=== PATIENT | female | born 1950 | race Caucasian/White ===

== ENCOUNTER → 2019-04-26 | Outpatient (CLI) | payer MEDICARE ==
[~2019-04-26] MED LIST: ASPI-630 PO; BUPR300T4 PO; CALC-31 PO; CARV6.2511 PO; CYAN-25 PO; CYCL10TA2 PO; DIAZ5TAB4 PO; DICL50TA4 PO; ESTR1TAB13 PO; FISH1CAP PO; FLUO20CA8 PO; GABA300C18 PO; HYDR-2769 PO; OXYC1TAB22 PO; POTA20TA82 PO; PRED5TAB19 PO; TRAZ-86 PO; VARE0.5T PO; VITA400C6 PO
[2019-04-26 09:48] LABS: BASO # 0.1 x10^3/uL (0.0-0.2); BASO % 1 % (0-3); EOS # 0.2 x10^3/uL (0.0-0.7); EOS % 2 % (0-3); HEMOGLOBIN 14.3 g/dL (12.0-15.5); LYMPH # 1.9 x10^3/uL (1.0-4.8); LYMPH % 16 % (24-48); MEAN CORPUSCULAR HEMOGLOBIN 32 pg (25-35); MEAN CORPUSCULAR HGB CONC 34 g/dL (31-37); MEAN CORPUSCULAR VOLUME 94 fL (79-100); MONO # 0.8 x10^3/uL (0.0-1.1); MONO % 7 % (0-9); NEUT # 8.7 x10^3/uL (1.8-7.7); NEUT % 75 % (31-73); PLATELET COUNT 315 x10^3/uL (140-400); RED BLOOD COUNT 4.46 x10^6/uL (3.50-5.40); RED CELL DISTRIBUTION WIDTH 13.2 % (11.5-14.5); WHITE BLOOD COUNT 11.6 x10^3/uL (4.0-11.0)
[2019-04-26 09:57] LABS: ALBUMIN 3.6 g/dL (3.4-5.0); CALCIUM 8.9 mg/dL (8.5-10.1); CREATININE 0.8 mg/dL (0.6-1.0); GFR 71.1; POTASSIUM 4.3 mmol/L (3.5-5.1)
[2019-04-26 09:58] LABS: PROTHROMBIN TIME PATIENT 12.4 SEC (11.7-14.0)
[2019-04-26 13:21] LABS: BILIRUBIN,URINE NEGATIVE (NEG); CLARITY,URINE CLEAR; COLOR,URINE YELLOW; NITRITE,URINE NEGATIVE (NEG); PH,URINE 5.5; PROTEIN,URINE NEGATIVE (NEG-TRACE); UROBILINOGEN,URINE 0.2 mg/dL (0.2 mg/dL)
--- NOTE | 2019-04-26 13:25 | EKG ---
[facility] [address] [place] [address] Test Date: 2019-04-26 Test Time: 12:52:55 Pat Name: YONY COLEMAN Department: Room: Gender: F Color Dipper: : 1950 Requested By: NATO PORTER Order Number: [id number] Reading MD: Farzad Becerra Measurements Intervals [place] Rate: 57 P: FL: QRS: 32 QRSD: 84 T: 33 QT: 400 QTc: 392 Interpretive Statements SINUS RHYTHM INCOMPLETE RIGHT BUNDLE BRANCH BLOCK Electronically Signed On 04-28-2019 8:51:58 CDT by Farzad Becerra
[2019-04-26 13:29] LABS: BACTERIA,URINE FEW /HPF (0-FEW); RBC,URINE 0 /HPF (0-2); SQUAMOUS EPITHELIAL CELL,UR MANY /LPF; WBC,URINE RARE /HPF (0-4)
--- NOTE | 2019-04-26 15:34 | RAD ---
EXAM: Chest, 2 views. HISTORY: Hypertension. Preoperative evaluation. COMPARISON: None. FINDINGS: 2 views of the chest are obtained. There is linear opacity within the right midlung, lingula and left lung base likely due to atelectasis or scarring. There is no consolidation, pleural effusion or pneumothorax. The heart is normal in size. There is lumbar fusion instrumentation. There is degenerative change at the thoracolumbar junction. IMPRESSION: 1. Suspected linear atelectasis or scarring within the right midlung, lingula and left lung base. 2. No acute pulmonary finding. Electronically signed by: Connie Issa MD (04/26/2019 3:31 PM) [place] [id number]
== END | disposition home or self-care (01) ==
LOC: SURGPAT 15:56
PROVIDERS: ATTEND Orthopaedic Surgery Sports Medicine
DX: Z01.818 Encounter for other preprocedural examination (principal); M47.815 Spondylosis without myelopathy or radiculopathy, thoracolumbar region; I45.10 Unspecified right bundle-branch block; I10 Essential (primary) hypertension
CPT/HCPCS: 36415; 71046; 80048; 81001; 82040; 82306; 85025; 85610; 85651; 85730; 87641; 93005

== ENCOUNTER 2019-05-10 07:30 | Inpatient (IN) | payer MEDICARE ==
[~2019-05-10] VITALS: Ht 167.6 cm; Wt 83.9 kg
[2019-06-07] VITALS (8 sets, daily range): BP systolic 106–126; BP diastolic 52–71
[2019-06-07] MEDS ORDERED: MELOXICAM 7.5 MG TABLET PO PRN (06:00)
[2019-06-07] MEDS ORDERED: ACETAMINOPHEN 500 MG TABLET PO PRN (06:00)
[2019-06-07] MEDS ORDERED: GABAPENTIN 300 MG CAPSULE. PO PRN (06:00)
[2019-06-07] MEDS ORDERED: MORPHINE SULFATE 5 MG, KETOROLAC 30MG VIAL 30 MG, ROPIVacaine 0.5% PF 60 ML, EPINEPHrin... INT ART ONE ×5 (06:00)
[2019-06-07] MEDS ORDERED: fentaNYL PF VIAL 100 MCG/2 ML VIAL IV PRN ×2 (07:00→11:45)
[2019-06-07] MEDS ORDERED: ONDANSETRON PF 4 MG/2 ML VIAL. IV PRN (07:00)
[2019-06-07] MEDS ORDERED: PROCHLORPERAZINE 10 MG/2 ML VIAL. IV PRN (07:00)
[2019-06-07] MEDS ORDERED: IV RINGERS,LACTATED 1000ML 1,000 ML IV SCH (07:00)
[2019-06-07] MEDS ORDERED: HYDROmorphone 2 MG/ML VIAL IV PRN (07:00)
[2019-06-07] MEDS ORDERED: NEOSTIGMINE METHYLSULFATE 5 MG/5 ML SYRINGE. ONE (09:13)
[2019-06-07] MEDS ORDERED: fentaNYL PF VIAL 100 MCG/2 ML VIAL ONE ×3 (09:13→12:49)
[2019-06-07] MEDS ORDERED: ROCURONIUM 50 MG/5 ML VIAL. ONE (09:13)
[2019-06-07] MEDS ORDERED: SEVOFLURANE > 120 MINUTES. IH ONE (09:13)
[2019-06-07] MEDS ORDERED: ONDANSETRON PF 4 MG/2 ML VIAL. ONE (09:14)
[2019-06-07] MEDS ORDERED: GLYCOPYRROLATE 1 MG/5 ML VIAL. ONE (09:14)
[2019-06-07] MEDS ORDERED: LIDOCAINE 2% PF 5 ML VIAL. ONE (09:14)
[2019-06-07] MEDS ORDERED: DEXAMETHASONE SOD PHOS 4 MG/ML VIAL ONE (09:14)
[2019-06-07] MEDS ORDERED: MIDAZOLAM HCL/PF 2 MG/2 ML VIAL. ONE (09:14)
[2019-06-07] MEDS ORDERED: PROPOFOL 20 ML IV ONE (09:14)
[2019-06-07] MEDS ORDERED: TRANEXAMIC ACID 1,000 MG in IV NORMAL SALINE 50ML 50 ML INJ ONE ×2 (10:15→11:00)
[2019-06-07] MEDS ORDERED: ePHEDrine PF IN SALINE 50 MG/10 ML SYRINGE. IV ONE (10:18)
[2019-06-07] MEDS ORDERED: diphenhydrAMINE 50 MG/ML VIAL IV PRN (11:45)
[2019-06-07] MEDS ORDERED: 0.9 % SODIUM CHLORIDE 10 ML DISP.SYRIN. IV PRN (11:45)
[2019-06-07] MEDS ORDERED: ZOLPIDEM 5 MG TABLET. PO PRN (11:45)
[2019-06-07] MEDS ORDERED: MORPHINE SULFATE 2 MG/ML VIAL. IV PRN (11:45)
[2019-06-07] MEDS ORDERED: METOCLOPRAMIDE HCL 10 MG/2 ML VIAL. IV PRN (11:45)
[2019-06-07] MEDS ORDERED: oxyCODONE IR 5 MG TABLET PO PRN (11:45)
[2019-06-07] MEDS ORDERED: CALCIUM CARBONATE 500 MG TAB.CHEW PO PRN (11:45)
[2019-06-07] MEDS ORDERED: IV DEXTROSE 5% 250 ML BAG. IV PRN (11:45)
[2019-06-07] MEDS ORDERED: PROCHLORPERAZINE 5 MG TABLET. PO PRN (11:45)
[2019-06-07] MEDS ORDERED: DEXTROSE 50% 25 GM / 50ML DISP.SYRIN. IV PRN (11:45)
[2019-06-07] MEDS: ONDANSETRON ODT 4 MG TAB.RAPDIS. PO SCH ×2 (12:00→17:29)
[2019-06-07] MEDS: ONDANSETRON PF 4 MG/2 ML VIAL. IV SCH ×2 (12:00→17:29)
[2019-06-07] MEDS: fentaNYL PF VIAL 100 MCG/2 ML VIAL IV PRN ×2 (12:04→12:12)
[2019-06-07] MEDS: MORPHINE SULFATE 2 MG/ML VIAL. IV PRN ×2 (12:06→12:31)
--- NOTE | 2019-06-07 12:18 | PDOC4 ---
Operative Note Operative Note Date of procedure: 06/07/2019 Surgeon: Hakan Porter Asst.: Carlos Sierra, advanced practice registered nurse who was necessary to assist with manipulating the leg and holding retractors as well as wound closure for this procedure Preoperative diagnosis: Advanced left hip primary degenerative joint disease Postoperative diagnosis: Same Procedure performed: Left total hip arthroplasty Anesthesia: Gen. Findings: Advanced primary degenerative joint disease of left hip. Blood loss: 200 mL Complications: None Components inserted Wharton and nephew 52 mm R3 shell with a 20� posteriorly directed liner, size 6 standard offset anthology stem with a 36+4 cobalt chrome head Reason for procedure: Patient is a very pleasant individual with severe progressive pain interfering with her activities of daily living and attributable to the above preoperative diagnosis. Clinical and radiographic examination were consistent with the above preoperative diagnosis and after discussion of the risks, benefits, and alternatives, taking into account her failure of conservative therapies, the patient elected to proceed with surgery. Description of procedure: Patient was greeted in the preoperative area by myself for the correct extremity was verified and marked. She was taken back to the operative suite and antibiotics were started as they were brought back. Once in the operative room, patient was transferred gently supine to the operating table and secured to the bed with all pressure points padded. Axillary roll was used. The down leg was padded at the fibular head and heel. Patient was secured the bed with our hip positioning devices. I then appreciated leg lengths in this position. After this, the operative extremity was prepped and draped in our usual sterile fashion including an [place]. We then proceeded to conduct our standard preoperative timeout. I then palpated and marked surface anatomy and chris a line from my standard posterolateral skin incision. Skin was incised with a scalpel and subcutaneous tissue was dissected down the level of fascia with electrocautery. Bleeders were cauterized as they were encountered. Draper elevator was used to sweep aside adherent subcutaneous tissue for later identification and repair of the fascia. Fascia was then incised in line with the skin incision and the gluteus daja was split bluntly in line with its fibers. There was abundant fibrotic tissue present and I excised some of this for exposure. After this, a lap was used to push bursal tissue posteriorly to identify the piriformis and quadratus, these were taken down, the piriformis was tagged for later repair. Our self-retaining retractor was in place. At this point, identified the hip capsule incised in a T-type incision, taking ends for later repair. The hip was dislocated, overall it was quite tight. I then palpated and marked with electrocautery areas at the greater and lesser trochanters and center of the femoral head and I made measurements for length and offset. I then chris a line on the neck about 1 cm proximal lesser trochanter and made my neck cut through this. The bony remnant was delivered from the operative field. We placed her acetabular retractors and inspected the acetabulum. I excised the soft tissues from the floor the acetabulum as well as the labrum. Osteophytes were taken down posteriorly. After this, we began reaming and reamed down until we encountered a punctate bleeding bony bed. The operative field and then thoroughly irrigated out. The cup was then impacted referencing elim ira anatomy and the crossbar attachment. I had identified the transverse acetabular ligament. After this, I palpated for the posterior column and greater sciatic notch and referenced this to place a screw into the posterior column. The operative field was irrigated again and my polyethylene liner was then impacted in position and confirmed that it was fully seated on circumferential visualization. We then removed our acetabular retractors and used our proximal femoral elevator and repositioned the leg. I used the neno cutting osteotome followed by canal finding reamer followed by lateralizing reamer. We then began broaching and broached to the above size and trialed different head and necks, using our measurements as a guide as well. The above sizes gave the best range of motion and stability. After this, the trial components were removed and the canal was thoroughly irrigated. I then impacted my femoral stem into position. We then re-trialed the head sizes and selected the above size. The hip was redislocated and the Chase taper region was washed and dried. The femoral head was then gently impacted in position and the acetabulum was inspected and irrigated to make sure was free of debris. After this, the hip was reduced. Excellent range of motion and stability were achieved. I was happy with the leg lengths. We then closed capsule with simple interrupted #2 Ethibond. Piriformis was reapproximated through drill holes. I then injected my periarticular mixture into the vamsi-incisional soft tissues below. Fascia was closed was running #2 Quill suture. Inverted interrupted 2-0 Vicryl in a multilayered fashion was used for subcutaneous tissue and running 3- 0 Monocryl for skin. Prior to wound closure, all counts correct �2. No complications. At the conclusion, the hip region was cleansed and dried and our incisional wound vacuum was applied. Patient tolerated surgery well. At the conclusion, they were laid supine and transferred gently supine to the hospital bed and taken to PACU in a stable and extubated condition. Postoperative plan is to admit the patient to the joint center for DVT and antibiotic prophylaxis as well as to begin the rehabilitation and receive likely IV pain medicine. HAKAN PORTER II, MD Jun 07, 2019 12:18
[2019-06-07] MEDS: IV NORMAL SALINE 1000ML BAG 1,000 ML IV SCH ×2 (13:00→20:28)
[2019-06-07 13:04] LABS: PROTHROMBIN TIME PATIENT 12.6 SEC (11.7-14.0)
--- NOTE | 2019-06-07 13:23 | RAD ---
Study: PELVIS Indication: Postoperative evaluation. Comparison: 04/24/2018 Findings: Status post total left hip arthroplasty. The hardware is intact. No periprosthetic fracture identified. Redemonstrated total right hip arthroplasty without hardware complication or change in alignment. Expected soft tissue findings about the left hip given proximity to surgery. No unexpected retained radiopaque foreign body. Partially visualized lumbar surgical hardware. Impression: 1. Status post total left hip arthroplasty without immediate postoperative hardware complication. 2. Unchanged configuration of a total hip arthroplasty on the right. Electronically signed by: CHAIM CRABTREE MD (06/07/2019 1:20 PM) [facility] [place]
[2019-06-07] MEDS: CARVEDILOL 6.25 MG TABLET. PO SCH (13:40)
[2019-06-07] MEDS: GABAPENTIN 300 MG CAPSULE. PO SCH (13:41)
[2019-06-07] MEDS: CYANOCOBALAMIN (VITAMIN B-12) 1,000 MCG TABLET. PO SCH (13:41)
[2019-06-07] MEDS: CALCIUM CARB/VIT D3 500/200 TABLET. PO SCH (13:41)
[2019-06-07] MEDS: VARENICLINE 0.5 MG TABLET. PO SCH (13:45)
[2019-06-07] MEDS: buPROPion XL 150 MG TAB.ER.24H. PO SCH (13:45)
--- NOTE | 2019-06-07 13:50 | NUR ---
Patient arrived around 1300 in a bed from PACU. O2 per NC at 2L. Vital signs stable. Patient states she is sad from her passing recently but not crying at this time. IV in left arm infusing properly. Dressing on left hip is dry/intact. Pain rated at 2-3. Will continue to monitor.
[2019-06-07] MEDS ORDERED: FLU VAX QS 2019-20 (36MOS+)/PF 0.5 ML SYRINGE. VAX IM ONE (14:00)
[2019-06-07] MEDS ORDERED: WARFARIN 7.5 MG TABLET. PO ONE (16:00)
[2019-06-07] MEDS: FERROUS SULFATE 325 MG TABLET. PO SCH (16:24)
[2019-06-07] MEDS: FLUoxetine HCL 20 MG CAPSULE PO SCH (20:29)
--- NOTE | 2019-06-07 21:30 | NUR ---
assisted patient to bathroom to void pt stated cant do it assisted back to bed bladder scan patient showing 437 ml pt stated start feeling pressure on the bladder area straight cath patient per protocol using aseptic technique obtained 825 ml rigoberto urine @ 2200
[2019-06-07] MEDS: traZODone 100 MG TABLET. PO PRN (21:41)
[2019-06-07] MEDS: oxyCODONE IR 5 MG TABLET PO PRN (21:42)
[2019-06-08 03:00] VITALS: BP 80/49
[2019-06-08 04:15] VITALS: BP 116/50
[2019-06-08 05:58] LABS: HEMATOCRIT 30.7 % (36.0-47.0); HEMOGLOBIN 10.6 g/dL (12.0-15.5)
[2019-06-08] MEDS ORDERED: MAGNESIUM HYDROXIDE 2,400 MG/30 ML ORAL.SUSP. PO PRN (06:00)
[2019-06-08] MEDS: ONDANSETRON ODT 4 MG TAB.RAPDIS. PO SCH ×2 (06:00)
[2019-06-08] MEDS: ONDANSETRON PF 4 MG/2 ML VIAL. IV SCH ×2 (06:00)
[2019-06-08 06:28] VITALS: BP 109/49
[2019-06-08 06:47] LABS: PROTHROMBIN TIME PATIENT 18.5 SEC (11.7-14.0)
--- NOTE | 2019-06-08 08:00 | NUR ---
assisted to the bathroom; she was able to void 400 cc yellow urine. sitting up for breakfast. she is rating her pain a 2-3. dressing clean dry and intact. she has good sensation motion and pulses bilateral lower extremities. am care completed.
[2019-06-08] MEDS: buPROPion XL 150 MG TAB.ER.24H. PO SCH (08:40)
[2019-06-08] MEDS: FERROUS SULFATE 325 MG TABLET. PO SCH ×2 (08:41→17:22)
[2019-06-08] MEDS: GABAPENTIN 300 MG CAPSULE. PO SCH (08:41)
[2019-06-08] MEDS: MULTIVITAMIN with MINERAL TABLET. PO SCH (08:41)
[2019-06-08] MEDS: VARENICLINE 0.5 MG TABLET. PO SCH (08:41)
[2019-06-08] MEDS: ACETAMINOPHEN 500 MG TABLET PO SCH ×3 (08:41→20:51)
[2019-06-08] MEDS: oxyCODONE IR 5 MG TABLET PO PRN ×4 (08:41→21:38)
[2019-06-08] MEDS: CYANOCOBALAMIN (VITAMIN B-12) 1,000 MCG TABLET. PO SCH (08:41)
[2019-06-08] MEDS: diazePAM 5 MG TABLET PO SCH (08:41)
[2019-06-08] MEDS: SENNOSIDES/DOCUSATE 8.6/50MG TABLET. PO SCH (08:41)
[2019-06-08] MEDS: CALCIUM CARB/VIT D3 500/200 TABLET. PO SCH (08:41)
[2019-06-08] MEDS: CARVEDILOL 6.25 MG TABLET. PO SCH (09:00)
[2019-06-08] MEDS ORDERED: POTASSIUM CHLORIDE 99 MG PO SCH (09:00)
--- NOTE | 2019-06-08 09:02 | PDOC ---
ORTHO PROGRESS NOTES Subjective She did require a straight catheter last night. She feels little irritation when she voids. No abdominal complaints, no chest pain or shortness of breath. She feels like her pain is tolerable. Vitals Vital Signs Date Time Temp Pulse Resp B/P (MAP) Pulse Ox O2 Delivery O2 Flow Rate FiO2 06/08/19 06:28 99.0 76 20 109/49 (69) 92 Nasal Cannula 2.0 99.0 Labs Laboratory Tests Test 06/07/19 09:10 06/08/19 05:30 Prothrombin Time 12.6 SEC (11.7-14.0) 18.5 SEC (11.7-14.0) Prothromb Time International Ratio 1.0 (0.8-1.1) 1.6 (0.8-1.1) Hemoglobin 10.6 g/dL (12.0-15.5) Hematocrit 30.7 % (36.0-47.0) Mean Corpuscular Hemoglobin Concent 35 g/dL (31-37) Laboratory Tests Test 06/07/19 09:10 06/08/19 05:30 Prothrombin Time 12.6 SEC (11.7-14.0) 18.5 SEC (11.7-14.0) Prothromb Time International Ratio 1.0 (0.8-1.1) 1.6 (0.8-1.1) Hemoglobin 10.6 g/dL (12.0-15.5) Hematocrit 30.7 % (36.0-47.0) Mean Corpuscular Hemoglobin Concent 35 g/dL (31-37) Notes She is awake and alert, sitting in a chair. Normal motor and sensation are present in her operative extremity Assessment and Plan We will monitor her urinary symptoms, consider sending a UA should they not improved. She will continue PT and OT. NATO PORTER II, MD Jun 08, 2019 09:02
[2019-06-08] MEDS ORDERED: ONDANSETRON ODT 4 MG TAB.RAPDIS. PO PRN (12:00)
[2019-06-08] MEDS ORDERED: ONDANSETRON PF 4 MG/2 ML VIAL. IV PRN (12:00)
--- NOTE | 2019-06-08 14:06 | NUR ---
Pharmacy Warfarin Dosing Note S:Pharmacy consulted to assist with anticoagulation therapy started 06/07/19 with target INR: 1.6 - 2.5 O:YONY COLEMAN is a 68 year old F with IVANIA LABS: Last INR: 1.6 Last HGB: 10.6 Last HCT: Last PLT: Last dose of 7.5 mg given on 06/07/19 at 1700 Previous Regimen: Vitamin K given: N Drug Interaction Changes: Ongoing Drug Interactions: A:INR of 1.6 is within desired range. Target range for this patient is: 1.6 - 2.5 P: Warfarin dose: 1.5 MG Today at 1600 Bridge Therapy: Next INR due IN AM Pharmacy anticoagulation service will continue to follow. JÚNIOR RUBALCAVA [facility] [place], 06/08/19 [id number]
[2019-06-08 15:28] VITALS: BP 138/53
[2019-06-08] MEDS ORDERED: BISACODYL 10 MG SUPP.RECT. PR PRN (16:00)
[2019-06-08] MEDS ORDERED: WARFARIN 1 MG TABLET. PO ONE (16:00)
[2019-06-08 18:15] VITALS: BP 119/59
[2019-06-08] MEDS: FLUoxetine HCL 20 MG CAPSULE PO SCH (20:51)
[2019-06-08] MEDS: traZODone 100 MG TABLET. PO PRN (22:29)
[2019-06-09] MEDS: ACETAMINOPHEN 500 MG TABLET PO SCH ×4 (03:25→21:22)
[2019-06-09 05:35] VITALS: BP 120/62
[2019-06-09 07:26] LABS: HEMATOCRIT 33.5 % (36.0-47.0); HEMOGLOBIN 11.2 g/dL (12.0-15.5)
[2019-06-09 07:36] LABS: PROTHROMBIN TIME PATIENT 18.8 SEC (11.7-14.0)
--- NOTE | 2019-06-09 07:49 | PDOC ---
ORTHO PROGRESS NOTES Subjective Patient sitting up in chair at bedside with complaint of moderate pain from the knee down. Post-op Day: 2 Procedure L IVANIA Vitals Vital Signs Date Time Temp Pulse Resp B/P (MAP) Pulse Ox O2 Delivery O2 Flow Rate FiO2 06/09/19 05:35 99.0 84 20 120/62 (81) 92 Room Air 99.0 Labs Laboratory Tests Test 06/07/19 09:10 06/08/19 05:30 06/09/19 06:45 Prothrombin Time 12.6 SEC (11.7-14.0) 18.5 SEC (11.7-14.0) Prothromb Time International Ratio 1.0 (0.8-1.1) 1.6 (0.8-1.1) Hemoglobin 10.6 g/dL (12.0-15.5) 11.2 g/dL (12.0-15.5) Hematocrit 30.7 % (36.0-47.0) 33.5 % (36.0-47.0) Mean Corpuscular Hemoglobin Concent 35 g/dL (31-37) 34 g/dL (31-37) Laboratory Tests Test 06/09/19 06:45 Hemoglobin 11.2 g/dL (12.0-15.5) Hematocrit 33.5 % (36.0-47.0) Mean Corpuscular Hemoglobin Concent 34 g/dL (31-37) Notes awake and alert Assessment and Plan POD # 2 S/P L IVANIA motor and sensation intact distally dressing dry and intact calf soft and nontender PT today JESUS ASKEW APRN Jun 09, 2019 07:49
[2019-06-09] MEDS: GABAPENTIN 300 MG CAPSULE. PO SCH (08:18)
[2019-06-09] MEDS: MULTIVITAMIN with MINERAL TABLET. PO SCH (08:18)
[2019-06-09] MEDS: CALCIUM CARB/VIT D3 500/200 TABLET. PO SCH (08:18)
[2019-06-09] MEDS: CYANOCOBALAMIN (VITAMIN B-12) 1,000 MCG TABLET. PO SCH (08:18)
[2019-06-09] MEDS: VARENICLINE 0.5 MG TABLET. PO SCH (08:19)
[2019-06-09] MEDS: diazePAM 5 MG TABLET PO SCH (08:19)
[2019-06-09] MEDS: SENNOSIDES/DOCUSATE 8.6/50MG TABLET. PO SCH (08:19)
[2019-06-09] MEDS: FERROUS SULFATE 325 MG TABLET. PO SCH ×2 (08:19→16:53)
[2019-06-09 08:25] VITALS: BP 90/56
[2019-06-09] MEDS: CARVEDILOL 6.25 MG TABLET. PO SCH (09:00)
--- NOTE | 2019-06-09 11:27 | NUR ---
Pharmacy Warfarin Dosing Note S:Pharmacy consulted to assist with anticoagulation therapy started 06/07/19 with target INR: 1.6 - 2.5 O:YONY COLEMAN is a 68 year old F with IVANIA LABS: Last INR: 1.6 Last HGB: 11.2 Last HCT: 33.5 Last PLT: Last dose of 1.5mg given on 06/08/19 at 1722 Previous Regimen: Vitamin K given: N Drug Interaction Changes: Ongoing Drug Interactions: A:INR of 1.6 is within desired range. Target range for this patient is: 1.6 - 2.5 P: Warfarin dose: 3 mg Today at 1600. Bridge Therapy: None Next INR due tomorrow. Pharmacy anticoagulation service will continue to follow. Mele Arita [facility], 06/09/19 0913
[2019-06-09] MEDS: IV NORMAL SALINE 1000ML BAG 1,000 ML IV SCH (11:34)
[2019-06-09] MEDS: buPROPion XL 150 MG TAB.ER.24H. PO SCH (12:26)
[2019-06-09 12:27] VITALS: BP 93/46
[2019-06-09] MEDS: oxyCODONE IR 5 MG TABLET PO PRN (12:27)
--- NOTE | 2019-06-09 15:07 | PATHOLOGY ---
[facility] Accession Number: [id number] . 01 Material submitted: . hip - LEFT HIP BONE. Modifiers: left . 01 Clinical history: . Osteoarthritis of L hip . 02 Diagnosis: Hip bone, left, removal: - Degenerative osteoarthritis. (SKM/db; 06/09/2019) LBQ 06/09/2019 1309 Local . 02 Electronically signed: . Trip Kline MD, Pathologist NPI- [id number] . 01 Gross description: . Received in formalin labeled "Audra Zarco, left hip bone," is a femoral head with attached femoral neck measuring 5.2 x 5.0 x 5.8 cm in greatest dimensions. The femoral head articular surface is smooth to granular and pale yellow-melton to dark brown in appearance, displaying extensive eburnation/hemorrhagic pitting. Serial sectioning reveals granular, pale yellow-melton to diffusely hemorrhagic cut surfaces. Extensive chalky, pale yellow-melton discoloration is noted underlying the area of eburnation/pitting, and an area of softened, hemorrhagic bone is noted underlying the articular surface near the femoral head/neck junction. Formulation Technician sections of the articular surface and softened, hemorrhagic bone are submitted in cassettes A1 and A2, following decalcification. (DAC; 06/08/2019) XDC/XDC 06/08/2019 0734 Local . 02 Pathologist provided ICD-10: M16.12 . 02 CPT . 171311, [id number] Specimen Comment: A courtesy copy of this report has been sent to Specimen Comment: [phone], . Specimen Comment: Report sent to / DR MILLER Performed at: [address] [place], [place] [id number] [facility] [address], [place], [place] [id number] MD Dalton Goff MD Phone: [phone] Performed at: [address] [id number] MD Jr Evangelista MD Phone: [phone]
[2019-06-09] MEDS ORDERED: WARFARIN 3 MG TABLET. PO ONE (16:00)
[2019-06-09 17:36] VITALS: BP 142/59
--- NOTE | 2019-06-09 19:26 | NUR ---
Audra is tolerating rehab well. she is rating her pain from 2-3. needs reinforcement regarding hip restrictions.
[2019-06-09] MEDS: FLUoxetine HCL 20 MG CAPSULE PO SCH (21:22)
[2019-06-10] MEDS: ACETAMINOPHEN 500 MG TABLET PO SCH ×3 (03:00→14:38)
[2019-06-10 04:42] LABS: HEMATOCRIT 30.4 % (36.0-47.0); HEMOGLOBIN 10.5 g/dL (12.0-15.5)
[2019-06-10 04:53] LABS: PROTHROMBIN TIME PATIENT 18.5 SEC (11.7-14.0)
[2019-06-10] MEDS: oxyCODONE IR 5 MG TABLET PO PRN ×3 (05:17→17:21)
[2019-06-10 05:54] VITALS: BP 120/54
[2019-06-10] MEDS: FERROUS SULFATE 325 MG TABLET. PO SCH ×2 (08:00→17:21)
[2019-06-10 08:18] VITALS: BP 84/48
[2019-06-10] MEDS: buPROPion XL 150 MG TAB.ER.24H. PO SCH (08:20)
[2019-06-10] MEDS: diazePAM 5 MG TABLET PO SCH (08:20)
[2019-06-10] MEDS: GABAPENTIN 300 MG CAPSULE. PO SCH (08:20)
[2019-06-10] MEDS: VARENICLINE 0.5 MG TABLET. PO SCH (08:20)
[2019-06-10] MEDS: CALCIUM CARB/VIT D3 500/200 TABLET. PO SCH (08:20)
[2019-06-10] MEDS: MULTIVITAMIN with MINERAL TABLET. PO SCH (08:20)
[2019-06-10] MEDS: SENNOSIDES/DOCUSATE 8.6/50MG TABLET. PO SCH (08:20)
[2019-06-10] MEDS: CYANOCOBALAMIN (VITAMIN B-12) 1,000 MCG TABLET. PO SCH (08:20)
[2019-06-10] MEDS: CARVEDILOL 6.25 MG TABLET. PO SCH (08:23)
--- NOTE | 2019-06-10 08:54 | PDOC ---
ORTHO PROGRESS NOTES Subjective She feels like she is doing well. She has a sore on her tongue, but it is getting better Vitals Vital Signs Date Time Temp Pulse Resp B/P (MAP) Pulse Ox O2 Delivery O2 Flow Rate FiO2 06/10/19 08:23 78 84/48 06/10/19 05:54 98.3 18 94 Room Air 98.3 Labs Laboratory Tests Test 06/09/19 06:45 06/10/19 04:10 Hemoglobin 11.2 g/dL (12.0-15.5) 10.5 g/dL (12.0-15.5) Hematocrit 33.5 % (36.0-47.0) 30.4 % (36.0-47.0) Mean Corpuscular Hemoglobin Concent 34 g/dL (31-37) 35 g/dL (31-37) Prothrombin Time 18.8 SEC (11.7-14.0) 18.5 SEC (11.7-14.0) Prothromb Time International Ratio 1.6 (0.8-1.1) 1.6 (0.8-1.1) Laboratory Tests Test 06/10/19 04:10 Hemoglobin 10.5 g/dL (12.0-15.5) Hematocrit 30.4 % (36.0-47.0) Mean Corpuscular Hemoglobin Concent 35 g/dL (31-37) Prothrombin Time 18.5 SEC (11.7-14.0) Prothromb Time International Ratio 1.6 (0.8-1.1) Notes She is awake and alert and sitting in a chair. Normal motor and sensation are present in her operative leg. Dressing is intact. Assessment and Plan She'll be transferred to facility. She can weight-bear as tolerated. I'll see her back in 2 weeks. NATO PORTER II, MD Jun 10, 2019 08:54
--- NOTE | 2019-06-10 08:56 | SNU/HH DC ---
DISCHARGE ORDERS DISCHARGE INFORMATION: DISCHARGE DATE: Jun 10, 2019 FINAL DIAGNOSIS Advanced left hip primary degenerative joint disease CONDITION ON DISCHARGE: Stable CODE STATUS: Code Status: Full SHELTER: SNF STAY <30 DAYS: Yes HOSPICE: HOSPICE: No HOSPICE EVAL & TREAT: No LTAC: ADMIT TO LTAC: No POST DISCHARGE ORDERS: ACTIVITY ORDERS: Activity as tolerated WEIGHT BEARING STATUS: As tolerated BATHING ORDERS: Shower-keep dressing dry DIET AFTER DISCHARGE: Regular WOUND/INCISION CARE: Ice to area for comfort, Keep wound/cast CDI, Do not change dressing FOLLOW-UP: PHYSICIAN FOLLOW-UP: Paulino in 2 weeks TREATMENT/EQUIPMENT ORDERS: ADAPTIVE EQUIPMENT NEEDED: Walker Physical Therapy For: Evalulation/Treatment Occupational Therapy For: Evaluation/Treatment DISCHARGE MEDICATIONS: Home Meds Reported Medications Potassium Chloride (POTASSIUM CHLORIDE) 20 Meq Tablet.er, 99 MG PO DAILY for POTASSIUM SUPPLEMENT, TAB.SR 04/26/19 Cyanocobalamin (Vitamin B-12) (VITAMIN B-12) 1,000 Mcg Tablet, 1000 MCG PO DAILY for VITAMIN SUPPLEMENT, TAB 04/26/19 Bupropion Hcl (BUPROPION XL) 300 Mg Tab.er.24h, 300 MG PO DAILY for ANTIDEPRESSANT, TAB.SR 04/26/19 Trazodone Hcl (TRAZODONE HCL) 100 Mg Tablet, 100 MG PO PRN QHS PRN for SEE COMMENTS, TAB 04/26/19 Varenicline Tartrate (CHANTIX) 0.5 Mg Tablet, 0.5 MG PO DIRECTED for SMOKING CESSATION, TAB 0.5 MG PO DAILY X3 DAY, 0.5 MG PO BID X4 DAY, 1 MG PO BID UNTIL END OF TREATMENT 04/26/19 Fluoxetine Hcl (FLUOXETINE HCL) 20 Mg Capsule, 20 MG PO HS, CAP 08/11/14 Gabapentin (GABAPENTIN ) 300 Mg Capsule, 300 MG PO DAILY, CAP 08/11/14 Carvedilol (CARVEDILOL ) 6.25 Mg Tablet, 1 TAB PO DAILY, #180 TAB 3 Refills 08/11/14 Diazepam (DIAZEPAM) 5 Mg Tablet, 5 MG PO DAILY, TAB 08/11/14 Calcium Carbonate/Vitamin D3 (CALCIUM 500 + D TABLET) 1 Each Tablet, 1 EACH PO DAILY for CALCIUM SUPPLEMENT 08/11/14 Discontinued Reported Medications Hydrocodone Bit/Acetaminophen (HYDROCODONE-APAP 10-325 ) 1 Each Tablet, 1 TAB PO PRN Q6HRS PRN for PAIN, TAB 0 Refills 08/11/14 Estradiol/Norethindrone Acet (ACTIVELLA 0.5-0.1 MG TABLET) 1 Each Tablet, 1 TAB PO DAILY, #30 TAB 11 Refills 08/11/14 Aspirin (ASPIRIN) 81 Mg Tab.chew, 81 MG PO DAILY, TAB.CHEW 08/11/14 Fish Oil/Dha/Epa (FISH OIL 1,200 MG FISH OIL) 1 Each Capsule, 1 EACH PO 08/11/14 Vitamin E (Dl,Tocopheryl Acet) (VITAMIN E) 400 Unit Capsule, 200 UNIT PO DAILY for SUPPLEMENT 08/11/14 NATO PORTER II, MD Jun 10, 2019 08:56
--- NOTE | 2019-06-10 08:58 | PDOC3 ---
Discharge Summary Visit Information Date of Admission: Jun 07, 2019 Date of Discharge: Jun 10, 2019 Admitting Diagnosis: advanced primary left hip degenerative joint disease Brief Hospital Course Allergies Allergies Coded Allergies Type Severity Reaction Last Updated Verified No Known Drug Allergies 08/11/14 No Vital Signs Vital Signs Date Time Temp Pulse Resp B/P (MAP) Pulse Ox O2 Delivery O2 Flow Rate FiO2 06/10/19 08:23 78 84/48 06/10/19 05:54 98.3 18 94 Room Air 98.3 Lab Results Laboratory Tests Test 06/09/19 06:45 06/10/19 04:10 Hemoglobin 11.2 g/dL (12.0-15.5) 10.5 g/dL (12.0-15.5) Hematocrit 33.5 % (36.0-47.0) 30.4 % (36.0-47.0) Mean Corpuscular Hemoglobin Concent 34 g/dL (31-37) 35 g/dL (31-37) Prothrombin Time 18.8 SEC (11.7-14.0) 18.5 SEC (11.7-14.0) Prothromb Time International Ratio 1.6 (0.8-1.1) 1.6 (0.8-1.1) Laboratory Tests Test 06/10/19 04:10 Hemoglobin 10.5 g/dL (12.0-15.5) Hematocrit 30.4 % (36.0-47.0) Mean Corpuscular Hemoglobin Concent 35 g/dL (31-37) Prothrombin Time 18.5 SEC (11.7-14.0) Prothromb Time International Ratio 1.6 (0.8-1.1) Brief Hospital Course Ms. Zarco is a 68 old female who presented to my outpatient orthopedic surgery clinic with complaints of severe and progressive pain that failed conservative therapies including injections. We had a discussion of the risks, benefits, alternatives to total hip arthroplasty and she elected to proceed. She tolerated surgery well and recovered well from anesthesia in the PACU. She was then taken to the joint Center for care and observation. She did receive PT, OT, DVT and antibiotic prophylaxis. She recovered well from surgery and remained hemodynamically stable and afebrile throughout the hospitalization. Pain was controlled on oral pain medicine at the time of discharge. Good progress was made with therapy throughout the hospitalization, and activities of daily living were accomplished by the patient. The incision was clean dry and intact and the operative extremity had normal motor and sensation. Discharge Information Condition at Discharge: Stable Follow Up: Weeks Disposition/Orders: D/C to Another Facility Scheduled Bupropion Hcl (Bupropion Xl) 300 Mg Tab.er.24h, 300 MG PO DAILY for ANTIDEPRESSANT, (Reported) Entered as Reported by: ERIC RIVAS on 04/26/191152 Last Taken: Unknown Dose on 06/07/19 050 Last Action: Converted on 1132 by RAHUL PORTER MD Calcium Carbonate/Vitamin D3 (Calcium 500 + D Tablet) 1 Each Tablet, 1 EACH PO DAILY for CALCIUM SUPPLEMENT, (Reported) Entered as Reported by: ALMA ROSA LITTLE on 08/11/14934 Last Action: Converted on 06/07/191132 by RAHUL PORTER MD Carvedilol (Carvedilol ) 6.25 Mg Tablet, 1 TAB PO DAILY, #180 Ref 3 (Reported) Entered as Reported by: ALMA ROSA LITTLE on 08/11/14937 Last Taken: Unknown Dose on 06/07/19 0500 Last Action: Continued on 06/07/191132 by RAHUL PORTER MD Cyanocobalamin (Vitamin B-12) (Vitamin B-12) 1,000 Mcg Tablet, 1,000 MCG PO DAILY for VITAMIN SUPPLEMENT, (Reported) Entered as Reported by: ERIC RIVAS on 04/26/191152 Last Action: Continued on 06/07/191132 by RAHUL PORTER MD Diazepam (Diazepam) 5 Mg Tablet, 5 MG PO DAILY, (Reported) Entered as Reported by: ALMA ROSA LITTLE on 08/11/14 0937 Last Taken: Unknown Dose on 06/07/19 0600 Last Action: Continued on 06/07/191132 by RAHUL PORTER MD Fluoxetine Hcl (Fluoxetine Hcl) 20 Mg Capsule, 20 MG PO HS, (Reported) Entered as Reported by: ALMA ROSA LITTLE on 08/11/1439 Last Action: Continued on 06/07/191132 by RAHUL PORTER MD Gabapentin (Gabapentin ) 300 Mg Capsule, 300 MG PO DAILY, (Reported) Entered as Reported by: ALMA ROSA LITTLE on 11/20/14 0938 Last Action: Continued on 06/07/191132 by RAHUL PORTER MD Potassium Chloride (Potassium Chloride) 20 Meq Tablet.er, 99 MG PO DAILY for POTASSIUM SUPPLEMENT, (Reported) Entered as Reported by: ERIC RIVAS on 04/26/191152 Last Action: Converted on 06/07/191132 by RAHUL PORTER MD Varenicline Tartrate (Chantix) 0.5 Mg Tablet, 0.5 MG PO DIRECTED for SMOKING CESSATION, (Reported) 0.5 MG PO DAILY X3 DAY, 0.5 MG PO BID X4 DAY, 1 MG PO BID UNTIL END OF TREATMENT Entered as Reported by: ERIC RIVAS on 04/26/191152 Last Action: Continued on 06/07/191132 by RAHUL PORTER MD Scheduled PRN Trazodone Hcl (Trazodone Hcl) 100 Mg Tablet, 100 MG PO PRN QHS PRN for SEE COMMENTS, (Reported) Entered as Reported by: ERIC RIVAS on 04/26/191152 Last Action: Edited on 06/07/19 140 by EZRA AUGUST Discontinued Medications Aspirin (Aspirin) 81 Mg Tab.chew, 81 MG PO DAILY, (Reported) Entered as Reported by: ALMA ROSA LITTLE on 08/11/14935 Last Taken: Unknown Dose on 05/31/19 Last Action: HELD on 06/07/191132 by RAHUL PORTER MD Estradiol/Norethindrone Acet (Activella 0.5-0.1 Mg Tablet) 1 Each Tablet, 1 TAB PO DAILY, #30 Ref 11 (Reported) Entered as Reported by: ALMA ROSA LITTLE on 08/11/1437 Last Action: HELD on 06/07/191132 by RAHUL PORTER MD Fish Oil/Dha/Epa (Fish Oil 1,200 Mg Fish Oil) 1 Each Capsule, 1 EACH PO, (Reported) Entered as Reported by: ALMA ROSA LITTLE on 08/11/14935 Last Action: HELD on 06/07/191132 by RAHUL PORTER MD Hydrocodone Bit/Acetaminophen (Hydrocodone-Apap 10-325 ) 1 Each Tablet, 1 TAB PO PRN Q6HRS PRN for PAIN, Ref 0 (Reported) Entered as Reported by: ALMA ROSA LITTLE on 08/11/1443 Last Taken: Unknown Dose on 06/07/19 0600 Last Action: HELD on 06/07/191132 by RAHUL PORTER MD Vitamin E (Dl,Tocopheryl Acet) (Vitamin E) 400 Unit Capsule, 200 UNIT PO DAILY for SUPPLEMENT, (Reported) Entered as Reported by: ALMA ROSA LITTLE on 08/11/14 0935 Last Action: HELD on 06/07/191132 by RAHUL PORTER MD Patient Instructions Patient Instructions She'll be transferred to rehabilitation. She will weight-bear as tolerated. Activity as tolerated. She will work with PT and OT. She should continue Coumadin. Worrisome signs and symptoms that should prompt a phone call to my office were discussed. I'll see her back in 2 weeks. NATO PORTER II, MD Jun 10, 2019 08:58
--- NOTE | 2019-06-10 12:41 | NUR ---
Pharmacy Warfarin Dosing Note S:Pharmacy consulted to assist with anticoagulation therapy started 06/07/19 with target INR: 1.6 - 2.5 O:YONY COLEMAN is a 68 year old F with [facility] LABS: Last INR: 1.6 Last HGB: 11.2 Last HCT: 33.5 Last PLT: Last dose of 3 mg given on 06/09/19 at 1722 Previous Regimen: Vitamin K given: N Drug Interaction Changes: Ongoing Drug Interactions: A:INR of 1.6 is within desired range. Target range for this patient is: 1.6 - 2.5 P: Warfarin dose: 4 mg Today at 1400 Bridge Therapy: None Next INR due ON FRIDAY AT [facility]. Pharmacy anticoagulation service will continue to follow. JÚNIOR RUBALCAVA [facility], 06/10/19 [id number]
[2019-06-10] MEDS ORDERED: WARFARIN 4 MG TABLET. PO ONE (14:00)
[2019-06-10 17:19] VITALS: BP 88/42
--- NOTE | 2019-06-10 18:05 | NUR ---
Discharged to [facility] per [facility]. personal belongings taken with her. See discharge instruction sheet for details
== END 2019-06-10 18:13 | DRG 470 ==
LOC: OPSVCIP 06-07 08:17 → 4 SOUTHEST 06-07 13:00
PROVIDERS: ADMIT Orthopaedic Surgery Sports Medicine; ATTEND Orthopaedic Surgery Sports Medicine
PROC: 0SRB0JZ Replacement of Left Hip Joint with Synthetic Substitute, Open Approach (ICD-10-PCS; principal; 2019-06-07 10:00)
DX: M16.12 Unilateral primary osteoarthritis, left hip (principal); F41.8 Other specified anxiety disorders
CPT/HCPCS: 36415; 72170; 85014; 85018; 85610; 88304; 88311; 99406; A7015; C1713; J0171; J0696; J1100; J1885; J2001; J2250; J2270; J2405; J2704; J2710; J2795; J3010; J3490; J7030; J7120; 97116; 97150; 97530; 97535; G0378

== ENCOUNTER → 2021-10-29 | Outpatient (CLI) | payer MEDICARE ==
[~2021-10-29] MED LIST changes: +ASPI325T11 PO; -BUPR300T4 PO; +BUPR300T92 PO; +CYCL10TA19 PO; -CYCL10TA2 PO; +DICL50TA2 PO; +ESCITALOPRAM OX10 MG PO; +FERR325T72 PO; +FLUO20CA22 PO; -FLUO20CA8 PO; +OMEG1CAP27 PO; +OXYC1TAB15 PO; +POTA20TA4 PO; -POTA20TA82 PO; +TRAZ-123 PO; -TRAZ-86 PO; +VITA-47 PO; +VITA200T6 PO; -VITA400C6 PO
[2021-10-29 08:55] LABS: BASO # 0.1 x10^3/uL (0.0-0.2); BASO % 1 % (0-3); EOS # 0.2 x10^3/uL (0.0-0.7); EOS % 2 % (0-3); HEMATOCRIT 43.8 % (36.0-47.0); HEMOGLOBIN 14.7 g/dL (12.0-15.5); LYMPH # 1.7 x10^3/uL (1.0-4.8); LYMPH % 18 % (24-48); MEAN CORPUSCULAR HEMOGLOBIN 32 pg (25-35); MEAN CORPUSCULAR HGB CONC 34 g/dL (31-37); MEAN CORPUSCULAR VOLUME 94 fL (79-100); MONO # 0.7 x10^3/uL (0.0-1.1); MONO % 7 % (0-9); NEUT # 7.1 x10^3/uL (1.8-7.7); NEUT % 73 % (31-73); PLATELET COUNT 348 x10^3/uL (140-400); RED BLOOD COUNT 4.66 x10^6/uL (3.50-5.40); RED CELL DISTRIBUTION WIDTH 13.3 % (11.5-14.5); WHITE BLOOD COUNT 9.8 x10^3/uL (4.0-11.0)
[2021-10-29 09:05] LABS: PROTHROMBIN TIME PATIENT 12.2 SEC (11.7-14.0)
[2021-10-29 09:13] LABS: ALBUMIN 3.7 g/dL (3.4-5.0); CALCIUM 9.1 mg/dL (8.5-10.1); CREATININE 0.7 mg/dL (0.6-1.0); GFR 82.5; POTASSIUM 3.9 mmol/L (3.5-5.1)
--- NOTE | 2021-10-29 13:01 | RAD ---
EXAM: Chest, 2 views. HISTORY: Hypertension. COMPARISON: 04/26/2019 FINDINGS: 2 views of the chest are obtained. There is no infiltrate, pleural effusion or pneumothorax . There is stable lingular atelectasis or scarring. The heart is normal in size. IMPRESSION: Stable suspected lingular atelectasis or scarring. Electronically signed by: Connie Issa MD (10/29/2021 12:59 PM) [id number]
[2021-10-30 01:12] LABS: HEMOGLOBIN A1C 5.3 % (4.8-5.6)
== END ==
LOC: SURGPAT 12:56
PROVIDERS: ATTEND Orthopaedic Surgery
DX: Z01.818 Encounter for other preprocedural examination (principal); M17.0 Bilateral primary osteoarthritis of knee
CPT/HCPCS: 36415; 71046; 80048; 82040; 82306; 83036; 85025; 85610; 85651; 85730; 87641

== ENCOUNTER 2021-11-19 06:19 | Inpatient (IN) | payer MEDICARE ==
[2021-11-07 17:10] VITALS: BP 186/88
[2021-11-19] VITALS (9 sets, daily range): BP systolic 109–127; BP diastolic 59–71
[~2021-11-19] VITALS: Ht 165.1 cm; Wt 79.5 kg
[~2021-11-19 06:19] MED LIST changes: +ACETAMINOPHEN 500 MG TABLET PO PRN; -ASPI325T11 PO; -FERR325T72 PO; +GABAPENTIN 300 MG CAPSULE. PO PRN; +IV RINGERS,LACTATED 1000ML 1,000 ML IV SCH; +MELOXICAM 7.5 MG TABLET PO PRN; -OXYC1TAB15 PO; +PROCHLORPERAZINE 10 MG/2 ML VIAL. IVP PRN; +TRANEXAMIC ACID 1,000 MG in IV NS 50ML -- 1ST BAG INJ ONE; +fentaNYL PF VIAL 100 MCG/2 ML VIAL IVP PRN
[2021-11-19] MEDS ORDERED: ROCURONIUM 50 MG/5 ML VIAL. ONE (06:58)
[2021-11-19] MEDS ORDERED: fentaNYL PF VIAL 100 MCG/2 ML VIAL ONE ×2 (06:58→09:43)
[2021-11-19] MEDS ORDERED: PROPOFOL 10 MG/ML (20ML) VIAL. IV ONE (06:58)
[2021-11-19] MEDS ORDERED: ONDANSETRON PF 4 MG/2 ML VIAL. ONE (06:58)
[2021-11-19] MEDS ORDERED: DEXAMETHASONE SOD PHOS 4 MG/ML VIAL ONE (06:58)
[2021-11-19] MEDS ORDERED: LIDOCAINE 2% PF 5 ML VIAL. ONE (06:58)
[2021-11-19] MEDS ORDERED: NEOSTIGMINE METHYLSULFATE 5 MG/5 ML SYRINGE. ONE (06:59)
[2021-11-19] MEDS ORDERED: GLYCOPYRROLATE 1 MG/5 ML VIAL. ONE (06:59)
[2021-11-19] MEDS ORDERED: MIDAZOLAM HCL/PF 2 MG/2 ML VIAL. ONE (06:59)
[2021-11-19] MEDS ORDERED: SEVOFLURANE 31 TO 60 MINUTES. IH ONE (07:01)
[2021-11-19] MEDS ORDERED: TRANEXAMIC ACID in NS IVPB 50 ML ONE (07:30)
[2021-11-19] MEDS: TV=62ml MORPHINE 5 MG, KETOROLAC 30 MG, ROPIV, EPI INT ART ONE ×2 (07:40→08:28)
[2021-11-19] MEDS: TRANEXAMIC ACID in NS IVPB 50 ML ONE ×2 (07:40→08:28)
[2021-11-19] MEDS ORDERED: TRANEXAMIC ACID 1,000 MG in IV NS 50ML -- 2ND BAG INJ ONE (08:00)
[2021-11-19] MEDS ORDERED: LABETALOL 20 MG/4 ML DISP.SYRIN. IVP ONE (08:35)
[2021-11-19] MEDS ORDERED: ePHEDrine PF IN SALINE 50 MG/10 ML SYRINGE. IV ONE (09:14)
--- NOTE | 2021-11-19 09:17 | PDOC4 ---
OPERATIVE NOTE Date: Date: Nov 19, 2021 Pre-Op Diagnosis: Severe degenerative joint disease left knee Post-Op Diagnosis: Same Procedure Performed: Left total knee arthroplasty Surgeon: Cathy Anesthesia Type: General Blood Loss: 100 cc Specimans Obtained: Bone left knee Findings: See dictation Complications: None STEVENSON PANTOJA Jr. DO Nov 19, 2021 09:17
[2021-11-19] MEDS ORDERED: ZOLPIDEM 5 MG TABLET. PO PRN (09:30)
[2021-11-19] MEDS ORDERED: METOCLOPRAMIDE HCL 10 MG/2 ML VIAL. IVP PRN (09:30)
[2021-11-19] MEDS ORDERED: diphenhydrAMINE 50 MG/ML VIAL IVP PRN (09:30)
[2021-11-19] MEDS ORDERED: PROCHLORPERAZINE 5 MG TABLET. PO PRN (09:30)
[2021-11-19] MEDS ORDERED: fentaNYL PF VIAL 100 MCG/2 ML VIAL IVP PRN (09:30)
[2021-11-19] MEDS ORDERED: DEXTROSE 50% 25 GM / 50ML DISP.SYRIN. IV PRN (09:30)
[2021-11-19] MEDS ORDERED: IV DEXTROSE 5% 250 ML BAG. IV PRN (09:30)
[2021-11-19] MEDS ORDERED: CALCIUM CARBONATE 500 MG TAB.CHEW PO PRN (09:30)
[2021-11-19] MEDS ORDERED: 0.9 % SODIUM CHLORIDE 10 ML DISP.SYRIN. IV PRN (09:30)
[2021-11-19] MEDS ORDERED: MORPHINE SULFATE 2 MG/ML INJ. IVP PRN (09:30)
[2021-11-19] MEDS: fentaNYL PF VIAL 100 MCG/2 ML VIAL IVP PRN ×2 (09:41→09:54)
--- NOTE | 2021-11-19 09:44 | OP ---
DATE OF SURGERY: 11/19/2021 She is here today for severe degenerative joint disease. PREOPERATIVE DIAGNOSIS: Severe degenerative joint disease, left knee. POSTOPERATIVE DIAGNOSIS: Severe degenerative joint disease, left knee. PROCEDURE: Left total knee arthroplasty. SURGEON: Theodore Morgan Jr, DO. REDUCING SYSTEM OPERATOR: Brady White. ANESTHESIA: General. COMPLICATIONS: None. ESTIMATED BLOOD LOSS: 100 mL. COMPONENTS: Raven left total knee arthroplasty with a size 5 femur, size 4 tibia and a size 32 patella. DESCRIPTION OF PROCEDURE: The patient was taken to the operative suite, given a spinal anesthetic. Right lower extremity was then prepped and draped in a sterile fashion. Incision was made through skin and subcutaneous tissues down to the extensor mechanism. Superficial bleeding was coagulated using a Bovie knife. After that, the medial parapatellar incision was made. Patella was everted. There were severe changes noted in the patellofemoral compartment. Therefore, the size of this patella was measured. This was cut in the appropriate fashion and then a 38 was noted to be the most appropriate size for the patella; therefore, the guide was placed and the drill holes were made through the guide. This was protected as the knee was taken into a flexed position. There were noted to be severe changes to the medial compartment, moderate changes to the lateral compartment. In any manner, the medial and lateral meniscal remnants were removed as well as the ACL, PCL remained intact and the F1 guide was then placed on the femur and drilled. Chondral surface was removed. The appropriate sites and then the F2 guide was placed, held in appropriate position. The drill pins were placed on the distal femur and then they were also on the anterior femur to hold this into position. The distal pins were then removed. The remainder of the guide was noted to be intact and in good position. Following this, the distal cut was made. This was noted to be a good flush cut. This was all removed and the next guide was then placed through using the pin holes distally. This was flushed on the femur with proper rotation and orientation noted. Therefore, this was pinned in appropriate position. The anterior, posterior and one of the chamfer cuts were made as well as the plugs, those were drilled. This guide was then removed and the final guide was placed on the femur. The final chamfer cuts were then made. These were noted to be a good flush cuts. The trial fit perfectly. This was then removed and following this, the external tibial guide was placed on the tibia with medial, lateral and posterior retractors placed. Proximal tibia was then cut to the appropriate position and an extra 2 mm was taken due to the fact this was a minimal resection at this point. The trials were then placed, taken through range of motion. There was excellent tracking of the patellofemoral joint and excellent stability throughout the arc of motion. These trials were then marked on the tibial side. This was held with pins and the drill and the keel were placed at the appropriate depth for rotation. All trial components were then removed. The Werewolf was then used to coagulate posterior capsular structures as well as medial and lateral capsular structures. Cement was mixed on the back table. Cement was then placed on cut surfaces. The tibia was impacted first, followed by the femur and this was held in extension until hardening of cement. Same was done on the patella, which was held with a patellar clamp. Excess cement was removed and then after hardening of cement, excess cement was again removed and then taken through range of motion. There was excellent stability, equal flexion and extension gaps were noted at this point. Then, the trials were removed and the actual polyethylene inserts were placed and held in the tray and noted to be stable. This was taken through range of motion. Tranexamic acid was then placed within the knee itself. While the tourniquet was deflated, no excessive bleeding was noted. Superficial bleeding was coagulated with the Bovie knife as well as with the Werewolf. The medial parapatellar incision was then closed in a running fashion using the Stratafix, then taken through multiple ranges of motion, noted to be stable and secure. This was reinforced with 2 or 3 separate areas of Vicryl and then the superficial tissue and skin was reapproximated. Sterile dressing was applied. The patient was then taken from the operative bed to the postoperative bed, taken to the PACU in stable condition. PURA BUCHANAN: Qing TID: [id number]
[2021-11-19] MEDS: MORPHINE SULFATE 2 MG/ML INJ. IVP PRN ×2 (09:45→09:55)
[2021-11-19] MEDS ORDERED: PROCHLORPERAZINE 10 MG/2 ML VIAL. ONE (09:48)
[2021-11-19] MEDS: MULTIVITAMIN with MINERAL TABLET. PO SCH (10:00)
[2021-11-19] MEDS ORDERED: HYDROmorphone 2 MG/ML INJ. ONE (10:06)
[2021-11-19] MEDS: HYDROmorphone 2 MG/ML INJ. IVP PRN ×2 (10:07→10:22)
--- NOTE | 2021-11-19 10:08 | RAD ---
XR [id number] 1-2 VIEWS History: Postop FINDINGS/ IMPRESSION: Postsurgical changes from left total knee arthroplasty. Well-seated distal femur and proximal tibial components. Postsurgical changes of the patellar articular surface. No fracture or dislocation. Align ment is anatomic. Expected joint fluid, subcutaneous air and edema. Electronically signed by: Rubio Cortez MD (11/19/2021 10:06 AM) [id number]
[2021-11-19] MEDS: IV NORMAL SALINE 1000ML BAG 1,000 ML IV SCH (10:32)
[2021-11-19] MEDS ORDERED: ASPI325T11 PO (11:27)
[2021-11-19] MEDS: ONDANSETRON ODT 4 MG TAB.RAPDIS. PO SCH ×2 (12:00→18:00)
[2021-11-19] MEDS: ONDANSETRON PF 4 MG/2 ML VIAL. IVP SCH ×2 (14:01→17:52)
--- NOTE | 2021-11-19 14:44 | PDOC1 ---
History and Physical Date of Admission Date of Admission DATE: 11/19/21 TIME: 14:44 Identification/Chief Complaint Chief Complaint Left knee pain Source Source: Patient History of Present Illness History of Present Illness Ms Zarco is a 71yo female with PMHx HTN, osteoarthritis, osteoporosis who comes to [facility] on 11/19/21 for elective left total knee arthroplasty after failing conservative treatment outpatient. She still difficulty bearing weight pain is interfering with activities of daily living. Seen postoperatively feeling improved. Some numbness patella side otherwise pain is absent currently no chest pain or shortness of breath. Past Medical History Past Medical History Right sciatica, hypertension. She has osteoporosis and osteoarthritis. Cardiovascular: HTN Past Surgical History Past Surgical History Significant for right total hip arthroplasty, 3 back surgeries, bilateral cataract extraction and also tonsillectomy. Past Surgical History: Cataract Removal, Total hip replacement (Right IVANIA, left IVANIA 06/07/2019), Tonsillectomy Social History Smoke: Quit ALCOHOL: none Drugs: None Current Medications Current Medications Current Medications Fentanyl Citrate (Fentanyl 2ml Vial) 25 mcg PRN Q5MIN PRN IVP MILD PAIN 1-3 Last administered on 11/19/21at 07:07; Start 11/19/21 at 06:00; Stop 11/20/21 at 05:59 Fentanyl Citrate (Fentanyl 2ml Vial) 50 mcg PRN Q5MIN PRN IVP MODERATE PAIN 4-6 Last administered on 11/19/21at 09:54; Start 11/19/21 at 06:00; Stop 11/20/21 at 05:59 Morphine Sulfate (Morphine Sulfate) 1 mg PRN Q10MIN PRN IVP SEVERE PAIN 7-10 Last administered on 11/19/21at 09:55; Start 11/19/21 at 06:00; Stop 11/20/21 at 05:59 Ringer's Solution 1,000 ml @ 30 mls/hr Q24H IV Last administered on 11/19/21at 06:58; Start 11/19/21 at 06:00; Stop 11/19/21 at 17:59 Hydromorphone HCl (Dilaudid) 0.5 mg PRN Q10MIN PRN IVP SEVERE PAIN 7-10, 2nd CHOICE Last administered on 11/19/21at 10:22; Start 11/19/21 at 06:00; Stop 11/20/21 at 05:59 Prochlorperazine Edisylate (Compazine) 5 mg PACU PRN PRN IVP NAUSEA, MRX1 Last administered on 11/19/21at 09:45; Start 11/19/21 at 06:00; Stop 11/20/21 at 05:59 Meloxicam (Mobic) 15 mg 1X PREOP PRN PO PRIOR TO PROCEDURE Last administered on 11/19/21at 06:59; Start 11/19/21 at 06:00; Stop 11/19/21 at 18:00 Gabapentin (Neurontin) 300 mg 1X PREOP PRN PO PRIOR TO PROCEDURE Last administered on 11/19/21at 06:58; Start 11/19/21 at 06:00; Stop 11/19/21 at 18:00 Acetaminophen (Tylenol) 1,000 mg 1X PREOP PRN PO PRIOR TO PROCEDURE Last administered on 11/19/21at 06:59; Start 11/19/21 at 06:00; Stop 11/19/21 at 18:00 Cefazolin Sodium/ Dextrose 50 ml @ 100 mls/hr 1X PREOP PRN IV PRIOR TO PROCEDURE; Start 11/19/21 at 06:00; Stop 11/19/21 at 18:00 Tranexamic Acid 50 ml @ 50 mls/hr 1X PERIOP ONCE INJ ; Start 11/19/21 at 06:00; Stop 11/19/21 at 06:59; Status DC Tranexamic Acid 50 ml @ 50 mls/hr 1X PERIOP ONCE INJ ; Start 11/19/21 at 08:00; Stop 11/19/21 at 08:59; Status DC Morphine Sulfate 5 mg/Ketorolac Tromethamine 30 mg/Ropivacaine 60 ml/Epinephrine HCl 0.5 mg/ Miscellaneous 63 ml @ 63 mls/hr 1X PERIOP ONCE INT ART Last administered on 11/19/21at 08:28; Start 11/19/21 at 06:00; Stop 11/19/21 at 06:59; Status DC Propofol (Diprivan) 200 mg STK-MED ONCE IV ; Start 11/19/21 at 06:58; Stop 11/19/21 at 06:58; Status DC Dexamethasone Sodium Phosphate (Decadron) 4 mg STK-MED ONCE .ROUTE ; Start 11/19/21 at 06:58; Stop 11/19/21 at 06:58; Status DC Lidocaine HCl (Lidocaine Pf 2% Vial) 5 ml STK-MED ONCE .ROUTE ; Start 11/19/21 at 06:58; Stop 11/19/21 at 06:58; Status DC Ondansetron HCl (Zofran) 4 mg STK-MED ONCE .ROUTE ; Start 11/19/21 at 06:58; Stop 11/19/21 at 06:58; Status DC Rocuronium [place] (Zemuron) 50 mg STK-MED ONCE .ROUTE ; Start 11/19/21 at 06:58; Stop 11/19/21 at 06:58; Status DC Fentanyl Citrate (Fentanyl 2ml Vial) 100 mcg STK-MED ONCE .ROUTE ; Start 11/19/21 at 06:58; Stop 11/19/21 at 06:59; Status DC Neostigmine [place] (Neostigmine Methylsulfate) 5 mg STK-MED ONCE .ROUTE ; Start 11/19/21 at 06:59; Stop 11/19/21 at 06:59; Status DC Midazolam HCl (Versed) 2 mg STK-MED ONCE .ROUTE ; Start 11/19/21 at 06:59; Stop 11/19/21 at 06:59; Status DC Glycopyrrolate (Robinul) 1 mg STK-MED ONCE .ROUTE ; Start 11/19/21 at 06:59; Stop 11/19/21 at 06:59; Status DC Sevoflurane (Ultane) 30 ml STK-MED ONCE IH ; Start 11/19/21 at 07:01; Stop 11/19/21 at 07:01; Status DC Tranexamic Acid 50 ml @ As Directed STK-MED ONCE .ROUTE ; Start 11/19/21 at 07:30; Stop 11/19/21 at 07:30; Status DC Tranexamic Acid 50 ml @ As Directed STK-MED ONCE .ROUTE Last administered on 11/19/21at 08:28; Start 11/19/21 at 07:36; Stop 11/19/21 at 07:36; Status DC Labetalol HCl (Normodyne Iv Push) 20 mg STK-MED ONCE IVP ; Start 11/19/21 at 08:35; Stop 11/19/21 at 08:35; Status DC Ephedrine Sulfate (ePHEDrine PF IN SALINE SYRINGE) 50 mg STK-MED ONCE IV ; Start 11/19/21 at 09:14; Stop 11/19/21 at 09:14; Status DC Morphine Sulfate (Morphine Sulfate) 2 mg PRN Q1HR PRN IVP PAIN-SEE COMMENTS; Start 11/19/21 at 09:30 Fentanyl Citrate (Fentanyl 2ml Vial) 25 mcg PRN Q1HR PRN IVP PAIN, 2nd CHOICE; Start 11/19/21 at 09:30 Diphenhydramine HCl (Benadryl) 25 mg PRN Q6HRS PRN IVP ITCHING; Start 11/19/21 at 09:30 Multivitamins (Thera M Plus) 1 tab DAILY PO ; Start 11/19/21 at 10:00 Senna/Docusate Sodium (Senna Plus) 1 tab DAILY PO ; Start 11/19/21 at 10:00 Ferrous Sulfate (Feosol) 325 mg BIDWMEALS PO ; Start 11/19/21 at 17:00 Sodium Chloride 1,000 ml @ 40 mls/hr Q24H IV Last administered on 11/19/21at 10:32; Start 11/19/21 at 09:30 Prochlorperazine Maleate (Compazine) 10 mg PRN Q4HRS PRN PO Nausea/vomiting, 2nd choice; Start 11/19/21 at 09:30 Metoclopramide HCl (Reglan Vial) 10 mg PRN Q4HRS PRN IVP NAUSEA/VOMITING, 3rd CHOICE; Start 11/19/21 at 09:30 Magnesium Hydroxide (Milk Of Magnesia) 2,400 mg 1X PRN PRN PO CONSTIPATION; Start 11/20/21 at 06:00; Stop 11/21/21 at 05:59 Bisacodyl (Dulcolax Supp) 10 mg 1X PRN PRN [place] CONSTIPATION; Start 11/20/21 at 16:00; Stop 11/21/21 at 15:59 Zolpidem Tartrate (Ambien) 5 mg PRN QHS PRN PO INSOMNIA, MAY REPEAT IN 1HR; Start 11/19/21 at 09:30 Calcium Carbonate/ Glycine (Tums) 500 mg PRN QID PRN PO INDIGESTION; Start 11/19/21 at 09:30 Sodium Chloride (Normal Saline Flush) 10 ml QSHIFT PRN IV AFTER MEDS AND BLOOD DRAWS; Start 11/19/21 at 09:30 Acetaminophen (Tylenol) 1,000 mg Q6H PO ; Start 11/20/21 at 09:00 Meloxicam (Mobic) 15 mg DAILY PO ; Start 11/20/21 at 09:00 Gabapentin (Neurontin) 100 mg Q8HRS PO ; Start 11/20/21 at 06:00 Ondansetron HCl (Zofran) 4 mg Q6HRS IVP Last administered on 11/19/21at 14:01; Start 11/19/21 at 12:00; Stop 11/20/21 at 06:01 Ondansetron HCl (Zofran Odt) 4 mg Q6HRS PO ; Start 11/19/21 at 12:00; Stop 11/20/21 at 06:01 Ondansetron HCl (Zofran) 4 mg PRN Q6HRS PRN IVP Nausea/vomiting, 1st choice; Start 11/20/21 at 12:00 Ondansetron HCl (Zofran Odt) 4 mg PRN Q6HRS PRN PO Nausea/vomiting, 1st choice; Start 11/20/21 at 12:00 Oxycodone HCl (Roxicodone) 5 mg PRN Q4HRS PRN PO Pain score 4-6; Start 11/19/21 at 09:30 Dextrose (Dextrose 50%-Water Syringe) 12.5 gm PRN Q15MIN PRN IV SEE COMMENTS; Start 11/19/21 at 09:30 Dextrose (Iv Dextrose 5%) 250 ml PRN Q15MIN PRN IV SEE COMMENTS; Start 11/19/21 at 09:30 Cefazolin Sodium/ Dextrose 50 ml @ 100 mls/hr Q6H IV Last administered on 11/19/21at 13:58; Start 11/19/21 at 14:00; Stop 11/20/21 at 02:29 Aspirin (Klaudia Aspirin) 325 mg DAILYWBKFT PO ; Start 11/20/21 at 08:00 Fentanyl Citrate (Fentanyl 2ml Vial) 100 mcg STK-MED ONCE .ROUTE ; Start 11/19/21 at 09:43; Stop 11/19/21 at 09:43; Status DC Prochlorperazine Edisylate (Compazine) 10 mg STK-MED ONCE .ROUTE ; Start 11/19/21 at 09:48; Stop 11/19/21 at 09:48; Status DC Hydromorphone HCl (Dilaudid) 2 mg STK-MED ONCE .ROUTE ; Start 11/19/21 at 10:06; Stop 11/19/21 at 10:06; Status DC Active Scripts Active Reported Aspirin Ec (Aspirin) 325 Mg Tablet.dr 1 Tab PO BID PRN 30 Days Hydrocodone-Apap 10-325 (Hydrocodone Bit/Acetaminophen) 1 Tab Tablet 1 Tab PO PRN Q6HRS PRN Diclofenac Potassium 50 Mg Tablet 50 Mg PO BID Vitamin E (Vitamin E Mixed) 200 Unit Tablet 200 Unit PO DAILY Fish Oil 1,000 Mg Softgel (Tarzan-3 Fatty Acids/Fish Oil) 1 Each Capsule 1 Each PO DAILY Escitalopram Oxalate 10 Mg Tablet 1 Tab PO DAILY Bupropion Xl (Bupropion Hcl) 300 Mg Tab.er.24h 300 Mg PO DAILY Gabapentin (Gabapentin) 300 Mg Capsule 600 Mg PO BID Carvedilol (Carvedilol) 6.25 Mg Tablet 1 Tab PO DAILY Calcium 500 + D Tablet (Calcium Carbonate/Vitamin D3) 1 Each Tablet 1 Each PO DAILY Allergies Allergies: Coded Allergies: No Known Drug Allergies (Unverified , 08/11/14) ROS General: No: Chills, Night Sweats, Fatigue, Malaise, Appetite, Other PSYCHOLOGICAL ROS: No: Anxiety, Behavioral Disorder, Concentration difficultie, Decreased libido, Depression, Disorientation, Hallucinations, Hostility, Irritablity, Memory difficulties, Mood Swings, Obsessive thoughts, Physical abuse, Sexual abuse, Sleep disturbances, Suicidal ideation, Other Eyes: No Blurry vision, No Decreased vision, No Double vision, No Dry eyes, No Excessive tearing, No Eye Pain, No Itchy Eyes, No Loss of vision, No Photophobia, No Scotomata, No Uses contacts, No Uses glasses, No Other HEENT: No: Heacaches, Visual Changes, Hearing change, Nasal congestion, Nasal discharge, Oral lesions, Sinus pain, Sore Throat, Epistaxis, Sneezing, Snoring, Tinnitus, Vertigo, Vocal changes, Other ALLERGY AND IMMUNOLOGY: No: Hives, Insect Bite Sensitivity, Itchy/Watery Eyes, Nasal Congestion, Post Nasal Drip, Seasonal Allergies, Other Hematological and Lymphatic: No: Bleeding Problems, Blood Clots, Blood Transfusions, Brusing, Night Sweats, Pallor, Swollen Lymph Nodes, Other ENDOCRINE: No: Breast Changes, Galactorrhea, Hair Pattern Changes, Hot Flashes, Malaise/lethargy, Mood Swings, Palpitations, Polydipsia/polyuria, Skin Changes, Temperature Intolerance, Unexpected Weight Changes, Other Breast: No New/Changing Breast Lumps, No Nipple changes, No Nipple discharge, No Other Respiratory: No: Cough, Hemoptysis, Orthopnea, Pleuritic Pain, Shortness of breath, SOB with excertion, Sputum Changes, Stridor, Tachypnea, Wheezing, Other Cardiovascular: No Chest Pain, No Palpitations, No Orthopnea, No Paroxysmal Noc. Dyspnea, No Edema, No Lt Headedness, No Other Gastrointestinal: No Nausea, No Vomiting, No Abdominal Pain, No Diarrhea, No Constipation, No Melena, No Hematochezia, No Other Genitourinary: No Dysuria, No Frequency, No Incontinence, No Hematuria, No Retention, No Discharge, No Urgency, No Pain, No Flank Pain, No Other, No , No , No , No , No , No , No Musculoskeletal: Yes Gait Disturbance, Yes Joint Pain, Yes Joint Stiffness; No Joint Swelling, No Muscle Pain, No Muscular Weakness, No Pain In:, No Swelling In:, No Other Neurological: No Behavorial Changes, No Bowel/Bladder ControlChng, No Confusion, No Dizziness, No Gait Disturbance, No Headaches, No Impaired Coord/balance, No Memory Loss, No Numbness/Tingling, No Seizures, No Speech Problems, No Tremors, No Visual Changes, No Weakness, No Other Skin: No Dry Skin, No Eczema, No Hair Changes, No Lumps, No Mole Changes, No Mottling, No Nail Changes, No Pruritus, No Rash, No Skin Lesion Changes, No Other, No Acne Physical Exam General: Alert, Oriented X3, Cooperative, mild distress HEENT: Atraumatic, PERRLA, EOMI, Mucous membr. moist/pink Lungs: Clear to auscultation, Normal air movement Heart: S1S2, RRR, no thrills, no rubs, no gallops, no murmurs Abdomen: Normal bowel sounds, Soft, No tenderness, No hepatosplenomegaly, No masses Extremities: No clubbing, No cyanosis, No edema, Normal pulses, Other (Left left knee compressive wrap no numbness or tingling pulses intact on left foot PT and DP.) Skin: No rashes, No breakdown, No significant lesion Neuro: Normal gait, Normal speech, Strength at 5/5 X4 ext, Normal tone, Sensation intact, Cranial nerves 3-12 NL, Reflexes 2+ Psych/Mental Status: Mental status NL, Mood NL Vitals Vitals Vital Signs Date Time Temp Pulse Resp B/P (MAP) Pulse Ox O2 Delivery O2 Flow Rate FiO2 11/19/21 14:02 97.2 57 18 117/62 (80) 97 Nasal Cannula 2.0 97.2 Labs Labs Laboratory Tests Test 11/19/21 06:30 POC SARS CoV-2 Antigen Negative (NEGATIVE) Laboratory Tests Test 11/19/21 06:30 POC SARS CoV-2 Antigen Negative (NEGATIVE) VTE Prophylaxis Ordered VTE Prophylaxis Devices: Yes VTE Pharmacological Prophylaxi: Yes Assessment/Plan Assessment/Plan Left knee osteoarthritis - s/p left TKA 11/19/21. Pain control bowel regimen. Rehab modalities. HTN - cont coreg Osteoporosis - on vitamin d therapy, continue FEN - regular diet PPX - ASA FULL CODE Dispo -inpatient, patient knows she may need to have acute rehab or custodial rehab discharge Justifications for Admission Other Justification KADI UGARTE MD Nov 19, 2021 14:44
[2021-11-19] MEDS: SENNOSIDES/DOCUSATE 8.6/50MG TABLET. PO SCH (17:51)
[2021-11-19] MEDS: oxyCODONE IR 5 MG TABLET PO PRN (17:51)
[2021-11-19] MEDS: FERROUS SULFATE 325 MG TABLET. PO SCH (17:51)
[2021-11-19] MEDS: CARVEDILOL 6.25 MG TABLET. PO SCH (17:52)
[2021-11-19] MEDS: GABAPENTIN 300 MG CAPSULE. PO SCH (21:08)
[2021-11-20 03:03] VITALS: BP 131/54
[2021-11-20] MEDS: ONDANSETRON ODT 4 MG TAB.RAPDIS. PO SCH ×2 (05:47)
[2021-11-20] MEDS: ONDANSETRON PF 4 MG/2 ML VIAL. IVP SCH ×2 (05:55)
[2021-11-20] MEDS: oxyCODONE IR 5 MG TABLET PO PRN ×2 (05:58→17:46)
[2021-11-20] MEDS: GABAPENTIN 100 MG CAPSULE. PO SCH ×3 (05:58→19:26)
[2021-11-20] MEDS ORDERED: MAGNESIUM HYDROXIDE 2,400 MG/30 ML ORAL.SUSP. PO PRN (06:00)
[2021-11-20 06:34] VITALS: BP 98/57
[2021-11-20] MEDS ORDERED: ASPIRIN 325 MG TABLET PO SCH (08:00)
[2021-11-20] MEDS: MULTIVITAMIN with MINERAL TABLET. PO SCH (08:38)
[2021-11-20] MEDS: ACETAMINOPHEN 500 MG TABLET PO SCH ×3 (08:38→21:00)
[2021-11-20] MEDS: CARVEDILOL 6.25 MG TABLET. PO SCH ×2 (08:38→17:47)
[2021-11-20] MEDS: SENNOSIDES/DOCUSATE 8.6/50MG TABLET. PO SCH (08:38)
[2021-11-20] MEDS: MELOXICAM 7.5 MG TABLET PO SCH (08:40)
[2021-11-20] MEDS: ASPIRIN ENTERIC COATED 325 MG TABLET.DR. PO SCH ×2 (08:40→21:20)
[2021-11-20] MEDS: FERROUS SULFATE 325 MG TABLET. PO SCH ×2 (08:40→17:45)
[2021-11-20] MEDS: CITALOPRAM 20 MG TABLET. PO SCH (08:40)
[2021-11-20] MEDS: CALCIUM CARB/VIT D3 500/200 TABLET. PO SCH (08:41)
[2021-11-20] MEDS: GABAPENTIN 300 MG CAPSULE. PO SCH ×2 (08:41→21:20)
[2021-11-20 08:43] VITALS: BP 115/57
[2021-11-20] MEDS: IV NORMAL SALINE 1000ML BAG 1,000 ML IV SCH (09:30)
[2021-11-20 10:58] VITALS: BP 119/47
[2021-11-20] MEDS ORDERED: ONDANSETRON ODT 4 MG TAB.RAPDIS. PO PRN (12:00)
[2021-11-20] MEDS ORDERED: ONDANSETRON PF 4 MG/2 ML VIAL. IVP PRN (12:00)
--- NOTE | 2021-11-20 13:32 | PDOC ---
[employer] PROGRESS NOTE Date of Service DOS: DATE: 11/20/21 TIME: 13:30 Chief Complaint Chief Complaint Left knee osteoarthritis - s/p left TKA 11/19/21. Pain control bowel regimen. Rehab modalities. HTN - cont coreg Osteoporosis - on vitamin d therapy, continue FEN - regular diet PPX - ASA FULL CODE Dispo -inpatient, patient knows she may need to have acute rehab or group home rehab discharge History of Present Illness History of Present Illness 71yo female with PMHx HTN, osteoarthritis, osteoporosis who comes to [facility] on 11/19/21 for elective left total knee arthroplasty after failing conservative treatment outpatient. She still difficulty bearing weight pain is interfering with activities of daily living. Seen postoperatively feeling improved. Some numbness patella side otherwise pain is absent currently no chest pain or shortness of breath. 11/20/2021 No acute events overnight. Patient seen examined bedside. AF and VSS. Seen working with physical therapy. Pending their evaluation and appropriate placement. Pain is well controlled apparently. Patient's chart, labs, images were reviewed and discussed with RN Vitals/I&O Vitals/I&O: Vital Signs Date Time Temp Pulse Resp B/P (MAP) Pulse Ox O2 Delivery O2 Flow Rate FiO2 11/20/21 10:58 99.2 85 20 119/47 (71) 91 Room Air 99.2 11/20/21 06:34 3.0 I & O 11/19/21 11/19/21 11/20/21 15:00 23:00 07:00 Intake Total 1160 ml 440 ml 400 ml Output Total 50 ml 250 ml 1 ml Balance 1110 ml 190 ml 399 ml Physical Exam General: Alert, Oriented X3, Cooperative, mild distress Abdomen: Normal bowel sounds, Soft, No tenderness, No hepatosplenomegaly, No masses Extremities: No clubbing, No cyanosis, No edema, Normal pulses, Other (Left left knee compressive wrap no numbness or tingling pulses intact on left foot PT and DP.) Skin: No rashes, No breakdown, No significant lesion Comment Review of Relevant I have reviewed the following items zackary (where applicable) has been applied. Medications: Current Medications Medications (Trade) Dose Ordered Sig/Spencer Route PRN Reason Start Time Stop Time Status Last Admin Dose Admin Ferrous Sulfate (Feosol) 325 mg BIDWMEALS PO 11/19/21 17:00 11/20/21 08:40 Acetaminophen (Tylenol) 1,000 mg Q6H PO 11/20/21 09:00 11/20/21 08:38 Meloxicam (Mobic) 15 mg DAILY PO 11/20/21 09:00 11/20/21 08:40 Gabapentin (Neurontin) 100 mg Q8HRS PO 11/20/21 06:00 11/20/21 05:58 Cefazolin Sodium/ Dextrose 50 ml @ 100 mls/hr Q6H IV 11/19/21 14:00 11/20/21 02:29 DC 11/20/21 02:00 Carvedilol (Coreg) 6.25 mg BIDWMEALS PO 11/19/21 17:00 11/20/21 08:38 Gabapentin (Neurontin) 600 mg BID PO 11/19/21 21:00 11/20/21 08:41 Calcium/Vitamin D (Oscal D 500mg/ 200uts) 1 tab DAILY PO 11/20/21 09:00 11/20/21 08:41 Citalopram Hydrobromide (CeleXA) 20 mg DAILY PO 11/20/21 09:00 11/20/21 08:40 Aspirin (Ecotrin) 325 mg BID PO 11/20/21 09:00 11/20/21 08:40 Justifications for Admission Other Justification MARY ALICE MCPHERSON MD Nov 20, 2021 13:31
[2021-11-20] MEDS ORDERED: BISACODYL 10 MG SUPP.RECT. PR PRN (16:00)
[2021-11-20] MEDS: buPROPion XL 150 MG TAB.ER.24H. PO SCH (17:46)
[2021-11-20 18:32] VITALS: BP 116/67
[2021-11-20 23:04] VITALS: BP 115/65
[2021-11-21 02:42] VITALS: BP 112/68
[2021-11-21] MEDS: ACETAMINOPHEN 500 MG TABLET PO SCH ×4 (03:00→20:35)
[2021-11-21] MEDS: oxyCODONE IR 5 MG TABLET PO PRN ×3 (06:17→13:43)
[2021-11-21 07:14] VITALS: BP 92/53
[2021-11-21] MEDS: CARVEDILOL 6.25 MG TABLET. PO SCH ×2 (08:00→18:15)
[2021-11-21] MEDS: MELOXICAM 7.5 MG TABLET PO SCH (08:17)
[2021-11-21] MEDS: GABAPENTIN 300 MG CAPSULE. PO SCH ×2 (08:17→20:35)
[2021-11-21] MEDS: SENNOSIDES/DOCUSATE 8.6/50MG TABLET. PO SCH (08:17)
[2021-11-21] MEDS: MULTIVITAMIN with MINERAL TABLET. PO SCH (08:17)
[2021-11-21] MEDS: ASPIRIN ENTERIC COATED 325 MG TABLET.DR. PO SCH ×2 (08:17→20:35)
[2021-11-21] MEDS: FERROUS SULFATE 325 MG TABLET. PO SCH ×2 (08:18→18:16)
[2021-11-21] MEDS: CITALOPRAM 20 MG TABLET. PO SCH (08:18)
[2021-11-21] MEDS: CALCIUM CARB/VIT D3 500/200 TABLET. PO SCH (08:18)
[2021-11-21 08:23] LABS: HEMATOCRIT 34.4 % (36.0-47.0); HEMOGLOBIN 11.3 g/dL (12.0-15.5)
[2021-11-21] MEDS: buPROPion XL 150 MG TAB.ER.24H. PO SCH (08:23)
[2021-11-21] MEDS: IV NORMAL SALINE 1000ML BAG 1,000 ML IV SCH (09:30)
[2021-11-21 11:17] VITALS: BP 96/60
--- NOTE | 2021-11-21 13:22 | PDOC ---
[employer] PROGRESS NOTE Date of Service DOS: DATE: 11/21/21 TIME: 13:13 Chief Complaint Chief Complaint Left knee osteoarthritis - s/p left TKA 11/19/21. Pain control bowel regimen. Rehab modalities. HTN - cont coreg Osteoporosis - on vitamin d therapy, continue FEN - regular diet PPX - ASA FULL CODE Dispo -inpatient, patient knows she may need to have acute rehab or [facility] rehab discharge History of Present Illness History of Present Illness 71yo female with PMHx HTN, osteoarthritis, osteoporosis who comes to [facility] on 11/19/21 for elective left total knee arthroplasty after failing conservative treatment outpatient. She still difficulty bearing weight pain is interfering with activities of daily living. Seen postoperatively feeling improved. Some numbness patella side otherwise pain is absent currently no chest pain or shortness of breath. 11/20/2021 No acute events overnight. Patient seen examined bedside. AF and VSS. Seen working with physical therapy. Pending their evaluation and appropriate placement. Pain is well controlled apparently. Patient's chart, labs, images were reviewed and discussed with RN 11/21: No shortness of breath or chest pain. Passing flatus, no BM. Some burning and "slipping" sensation laterally in her left knee while laying in bed. No numbness tingling or swelling. Pulses intact. Reviewed Hb stable, d/w RN and SW, plans for SNF d/c in the next 24-48 hours. Vitals/I&O Vitals/I&O: Vital Signs Date Time Temp Pulse Resp B/P (MAP) Pulse Ox O2 Delivery O2 Flow Rate FiO2 11/21/21 11:17 70 18 96/60 (72) 92 Room Air 11/21/21 07:14 98.4 98.4 11/21/21 02:42 2.0 I & O 11/20/21 11/20/21 11/21/21 15:00 23:00 07:00 Intake Total 360 ml 350 ml Output Total 300 ml Balance 60 ml 350 ml Physical Exam General: Alert, Oriented X3, Cooperative, mild distress Abdomen: Normal bowel sounds, Soft, No tenderness, No hepatosplenomegaly, No masses Extremities: No clubbing, No cyanosis, No edema, Normal pulses, Other (Left left knee compressive wrap no numbness or tingling pulses intact on left foot PT and DP.) Skin: No rashes, No breakdown, No significant lesion Labs Labs: Laboratory Tests Test 11/21/21 07:50 Hemoglobin 11.3 g/dL (12.0-15.5) Hematocrit 34.4 % (36.0-47.0) Mean Corpuscular Hemoglobin Concent 33 g/dL (31-37) Comment Review of Relevant I have reviewed the following items zackary (where applicable) has been applied. Justifications for Admission Other Justification KADI UGARTE MD Nov 21, 2021 13:22
[2021-11-21] MEDS: LACTOBACILLUS RHAMNOSUS GG 1 CAPSULE. PO SCH ×2 (16:11→20:35)
[2021-11-21 18:40] VITALS: BP 99/62
[2021-11-21 19:00] VITALS: BP 90/51
--- NOTE | 2021-11-21 19:26 | PN ---
DATE: 11/20/2021 Status post postoperative day #1 for a left total knee replacement. This dictation is actually from yesterday. No signs or symptoms of active drainage. No signs or symptoms of DVT at this point. She is doing very well with physical therapy. She is having some pain issues at this point more than anything, but overall doing quite well. We will see how she does with physical and occupational therapy tomorrow. We will continue with DVT prophylaxis. She has completed antibiotics at this point. EMILIANO DR: Qing TID: [id number]
--- NOTE | 2021-11-21 19:42 | PN ---
DATE: 11/21/2021 SUBJECTIVE: Postoperative day #2 for a total knee replacement, doing very well. Radiographs looked very good. No significant drainage or signs of erythema at the incision site. No signs or symptoms of active drainage. No signs of DVT. She is having some good motion and working very well with physical therapy. We will continue with physical therapy and occupational therapy. Anticipate discharge tomorrow to a care facility for further rehab. Doing very well and progressing well. MARLEN/RAFAEL DR: Qing TID: [id number]
[2021-11-21 23:00] VITALS: BP 115/66
[2021-11-22 03:00] VITALS: BP 100/60
[2021-11-22] MEDS: ACETAMINOPHEN 500 MG TABLET PO SCH ×2 (03:00→08:42)
[2021-11-22 05:36] LABS: HEMATOCRIT 30.5 % (36.0-47.0); HEMOGLOBIN 10.1 g/dL (12.0-15.5)
[2021-11-22 06:30] VITALS: BP 128/71
[2021-11-22] MEDS: oxyCODONE IR 5 MG TABLET PO PRN (06:34)
[2021-11-22] MEDS: ASPIRIN ENTERIC COATED 325 MG TABLET.DR. PO SCH (08:42)
[2021-11-22] MEDS: CITALOPRAM 20 MG TABLET. PO SCH (08:42)
[2021-11-22] MEDS: LACTOBACILLUS RHAMNOSUS GG 1 CAPSULE. PO SCH (08:42)
[2021-11-22] MEDS: GABAPENTIN 300 MG CAPSULE. PO SCH (08:42)
[2021-11-22] MEDS: MULTIVITAMIN with MINERAL TABLET. PO SCH (08:42)
[2021-11-22] MEDS: FERROUS SULFATE 325 MG TABLET. PO SCH (08:42)
[2021-11-22] MEDS: CALCIUM CARB/VIT D3 500/200 TABLET. PO SCH (08:43)
[2021-11-22] MEDS: CARVEDILOL 6.25 MG TABLET. PO SCH (08:43)
[2021-11-22] MEDS: MELOXICAM 7.5 MG TABLET PO SCH (08:43)
[2021-11-22] MEDS ORDERED: OXYC1TAB15 PO (11:23)
[2021-11-22] MEDS ORDERED: FERR325T72 PO (11:23)
--- NOTE | 2021-11-22 11:25 | SNU/HH DC ---
DISCHARGE ORDERS DISCHARGE INFORMATION: DISCHARGE DATE: Nov 22, 2021 CONDITION ON DISCHARGE: Stable CODE STATUS: Code Status: Full ALF: SNF STAY <30 DAYS: Yes POST DISCHARGE ORDERS: ACTIVITY ORDERS: Other, see below WEIGHT BEARING STATUS: No restrictions, Full weight bearing, As tolerated BATHING ORDERS: Shower-keep dressing dry, No Tub Bath until see DIET AFTER DISCHARGE: Regular WOUND/INCISION CARE: Ice to area for comfort, Keep wound/cast CDI, Keep wound elevated OTHER WOUND INSTRUCTIONS: remove battery pack on Sunday 11/26 unscrew tubing close to dressing tape end FOLLOW-UP: ADDITIONAL FOLLOW-UP: post op appt on 12/03 at 1 pm at [place] office with Lisha Peralta ANTICOAGULATION F/U NEEDED: enteric coated aspirin 325 mg bid for 30 days (last day 12/19 at 9 pm TREATMENT/EQUIPMENT ORDERS: ADAPTIVE EQUIPMENT NEEDED: None Physical Therapy For: Evalulation/Treatment Occupational Therapy For: Evaluation/Treatment DISCHARGE MEDICATIONS: Home Meds Active Scripts Oxycodone/Apap 5-325 (PERCOCET 5-325 MG TABLET ) 1 Each Tablet, 1 TAB PO PRN Q6HRS PRN for PAIN for 3 Days, #12 TAB 0 Refills Prov:MARY ALICE MCPHERSON MD 11/22/21 Ferrous Sulfate (FEOSOL) 325 Mg Tablet, 325 MG PO QODAY for iron deficiency for 30 Days, #30 TAB 3 Refills Prov:MARY ALICE MCPHERSON MD 11/22/21 Reported Medications Aspirin (ASPIRIN EC) 325 Mg Tablet.dr, 1 TAB PO BID PRN for lood thinner for 30 Days, #60 TAB 0 Refills 11/19/21 Hydrocodone Bit/Acetaminophen (HYDROCODONE-APAP 10-325 ) 1 Tab Tablet, 1 TAB PO PRN Q6HRS PRN for PAIN, TAB 0 Refills 11/07/21 Diclofenac Potassium (DICLOFENAC POTASSIUM) 50 Mg Tablet, 50 MG PO BID for pain control, TAB 11/07/21 Vitamin E Mixed (VITAMIN E) 200 Unit Tablet, 200 UNIT PO DAILY for supplement, TAB 11/07/21 Escitalopram Oxalate (ESCITALOPRAM OXALATE) 10 Mg Tablet, 1 TAB PO DAILY for treat depression, #30 TAB 3 Refills 11/07/21 Bupropion Hcl (BUPROPION XL) 300 Mg Tab.er.24h, 300 MG PO DAILY for ANTIDEPRESSANT, TAB.SR 04/26/19 Gabapentin (GABAPENTIN ) 300 Mg Capsule, 600 MG PO BID for pain control, CAP 08/11/14 Carvedilol (CARVEDILOL ) 6.25 Mg Tablet, 1 TAB PO DAILY, #180 TAB 3 Refills 08/11/14 Calcium Carbonate/Vitamin D3 (CALCIUM 500 + D TABLET) 1 Each Tablet, 1 EACH PO DAILY for CALCIUM SUPPLEMENT 08/11/14 Discontinued Reported Medications Goldston-3 Fatty Acids/Fish Oil (FISH OIL 1,000 MG SOFTGEL) 1 Each Capsule, 1 EACH PO DAILY for supplement, CAP 11/07/21 Aspirin (ASPIRIN) 81 Mg Tab.chew, 81 MG PO DAILY for blood thinner, TAB.CHEW 11/07/21 MARY ALICE MCPHERSON MD Nov 22, 2021 11:25
[2021-11-22] MEDS: SENNOSIDES/DOCUSATE 8.6/50MG TABLET. PO SCH (12:40)
[2021-11-22] MEDS: buPROPion XL 150 MG TAB.ER.24H. PO SCH (12:42)
[2021-11-22] MEDS ORDERED: OMEG1CAP27 PO (14:04)
[2021-11-22 14:29] VITALS: BP 100/47
--- NOTE | 2021-11-22 15:34 | NUR ---
transferred to [facility]. report given to Td. all questions answered. all belongings packed, purse, cell phone battery charger tester, cpap bynum walker clothing shoes
--- NOTE | 2021-11-22 19:07 | PATHOLOGY ---
[facility] Accession Number: [id number] . 01 Material submitted: . knee - LEFT KNEE BONE/TISSUE. Modifiers: left . 01 Clinical history: . LEFT KNEE PAIN LEFT TOTAL KNEE . 02 Diagnosis: Bone and soft tissue "left knee" (total arthroplasty): - Complete focal erosion of articular cartilage, with subarticular sclerosis, consistent with osteoarthritis. - Negative for maliginancy. (MLK:kayode; 11/21/2021) QMS 11/22/2021 1851 Local . 02 Electronically signed: . Adenike Bianchi MD, Pathologist NPI- [id number] . 01 Gross description: . The specimen is received in formalin, labeled "Audra Zarco, left knee bone/tissue". Received are multiple segments of bone, including the tibial plateau, measuring 9.0 x 8.7 x 1.0 cm admixed with soft tissue in aggregate dimensions. Meniscus is not present. The articular surfaces are light melton-yellow to dark melton, smooth to roughened, and with signs of eburnation. The specimen is submitted representatively in cassette A1, following decalcification.([facility]; 11/19/2021) [facility] 11/19/2021 1707 Local . 02 Pathologist provided ICD-10: M25.562 . 02 CPT . 165896, [id number] Specimen Comment: A courtesy copy of this report has been sent to [phone], [phone] Specimen Comment: [id number] Specimen Comment: Report sent to / DR MILLER Performed at: 01 [facility] [address] [place] [address] [address], [place], [place] [id number] MD Yobani Lackey MD Phone: [phone] Performed at: [address] [id number] MD Jr Evangelista MD Phone: [phone]
== END 2021-11-22 15:00 | DRG 470 ==
LOC: SURG 06:19 → 4 SOUTHEST 09:37
PROVIDERS: ADMIT Orthopaedic Surgery; ATTEND Orthopaedic Surgery
PROC: 0SRD0J9 Replacement of Left Knee Joint with Synthetic Substitute, Cemented, Open Approach (ICD-10-PCS; principal; 2021-11-19 08:00)
DX: M17.12 Unilateral primary osteoarthritis, left knee (principal); I10 Essential (primary) hypertension; M81.0 Age-related osteoporosis without current pathological fracture; Z96.641 Presence of right artificial hip joint; Z20.822 Contact with and (suspected) exposure to COVID-19; Z98.41 Cataract extraction status, right eye; Z98.42 Cataract extraction status, left eye; Z87.891 Personal history of nicotine dependence
CPT/HCPCS: 36415; 73560; 85014; 85018; 86850; 86900; 86901; 87426; A4213; A4223; A4930; A6253; A6450; A6550; C1776; J0171; J0690; J0780; J1100; J1170; J1885; J2250; J2270; J2405; J2704; J2710; J2795; J3010; J3490; J7030; U0003; 97116-GP; 97150-GP; 97530-GO; 97530-GP; 97535-GO; G0378